=== PATIENT | male | born 1990 | race African-American/Black ===

== ENCOUNTER 2025-03-08 06:44 | Emergency (ER) | payer OTHER ==
[~2025-03-08] VITALS: Ht 165.1 cm; Wt 72.3 kg
[2025-03-08 07:53] LABS: BASO % 0.4 % (0.0-1.0); EOS % 0.2 % (0.0-3.0); HEMATOCRIT 42.8 % (42.0-52.0); HEMOGLOBIN 14.5 g/dl (13.5-17.5); LYMPH # 0.6 10^3/uL (1.5-5.0); MEAN CORPUSCULAR HEMOGLOBIN 30.7 pg (27.0-33.0); MEAN CORPUSCULAR HGB CONC 33.9 g/dl (32.0-36.5); MEAN CORPUSCULAR VOLUME 90.7 fl (80.0-96.0); MONO # 0.5 10^3/uL (0.0-0.8); MONO % 9.5 % (2.0-8.0); NEUTROPHILS # 4.1 10^3/uL (1.5-8.5); NEUTROPHILS % 77.5 % (36.0-66.0); PLATELET COUNT, AUTOMATED 187 10^3/uL (150-450); RED BLOOD COUNT 4.72 10^6/uL (4.30-6.10); WHITE BLOOD COUNT 5.3 10^3/uL (4.0-10.0)
[2025-03-08] MEDS: ONDANSETRON 4MG ORAL DISINTEGRATING TAB PO ONE (09:07)
[2025-03-08 09:30] VITALS: BP 121/78; TEMP 98.8; O2SAT 97
[2025-03-08] MEDS ORDERED: ONDA-282 PO (09:34)
== END 2025-03-08 09:44 | disposition home or self-care (01) ==
LOC: M ED 06:44
DX: R11.2 Nausea with vomiting, unspecified (principal); R19.7 Diarrhea, unspecified; F17.290 Nicotine dependence, other tobacco product, uncomplicated; Z79.899 Other long term (current) drug therapy